=== PATIENT | female | born 1965 | race Caucasian/White ===

== ENCOUNTER 2016-10-19 22:37 | Emergency (ER) | payer OTHER ==
[2016-10-20 00:54] VITALS: BP 111/70; PULSE 70; TEMP 97.9; BMI 25.7
--- NOTE | 2016-10-20 01:31 | PDOC ---
History of Present Illness - General History Source: Patient Exam Limitations: No Limitations - History of Present Illness Initial Comments: 10/20/16 01:34 The patient is a 51-year-old female, with a significant past medical history of left nephrectomy, who presents to the ED with fever, chills, and right flank pain that began yesterday morning. Pt reports that she is nauseous but denies any vomiting. Allergies: Penicillin <Mignon Seymour - Last Filed: 10/20/16 01:34> - General History Source: Patient <YannMusa verdugo - Last Filed: 10/20/16 02:49> - General Chief Complaint: Pain, Acute Stated Complaint: RIGHT FLANK PAIN, CHILLS Time Seen by Provider: 10/20/16 01:28 Past History <Mignon Seymour - Last Filed: 10/20/16 01:34> - Psycho/Social/Smoking Cessation Hx Suicidal Ideation: No Smoking History: Current every day smoker Number of Cigarettes Smoked Daily: 10 Information on smoking cessation initiated: No Hx Alcohol Use: No Drug/Substance Use Hx: No <Musa Ballesteros - Last Filed: 10/20/16 02:49> - Past Medical History Allergies/Adverse Reactions: Allergies Allergy/AdvReac Type Severity Reaction Status Date / Time Penicillins Allergy Verified 10/20/16 01:46 Home Medications: Ambulatory Orders Ibuprofen 800 mg PO TID #30 tablet 10/20/16 Levofloxacin [Levaquin -] 500 mg PO DAILY #5 tablet 10/20/16 Oxycodone HCl/Acetaminophen [Percocet 5-325 mg Tablet] 1 - 2 tab PO Q6H #20 tablet MDD 4 10/20/16 Review of Systems - Review of Systems Able to Perform ROS?: Yes Comments:: 10/20/16 01:34 CONSTITUTIONAL: Present: fever, chills Absent: diaphoresis, generalized weakness, malaise, loss of appetite HEENT: Absent: rhinorrhea, nasal congestion, throat pain, throat swelling, difficulty swallowing, mouth swelling, ear pain, eye pain, visual Changes CARDIOVASCULAR: Absent: chest pain, syncope, palpitations, irregular heart rate, lightheadedness , peripheral edema RESPIRATORY: Absent: cough, shortness of breath, dyspnea with exertion, orthopnea, wheezing, stridor, hemoptysis GASTROINTESTINAL: Present: nausea Absent: abdominal distension, vomiting, diarrhea, constipation, melena, hematochezia GENITOURINARY: Present: right flank pain Absent: dysuria, frequency, urgency, hesitancy, hematuria, genital pain MUSCULOSKELETAL: Absent: myalgia, arthralgia, joint swelling SKIN: Absent: rash, itching, pallor HEMATOLOGIC/IMMUNOLOGIC: Absent: easy bleeding, easy bruising, lymphadenopathy, frequent infections ENDOCRINE: Absent: unexplained weight gain, unexplained weight loss, heat intolerance, cold intolerance NEUROLOGIC: Absent: headache, focal weakness or paresthesias, dizziness, unsteady gait, seizure, mental status changes, bladder or bowel incontinence PSYCHIATRIC: Absent: anxiety, depression, suicidal or homicidal ideation, hallucinations. <Mignon Seymour - Last Filed: 10/20/16 01:34> *Physical Exam - Vital Signs Last Vital Signs Temp Pulse Resp BP Pulse Ox 97.9 F 70 14 111/70 98 10/20/16 00:52 10/20/16 00:52 10/20/16 00:52 10/20/16 00:52 10/20/16 00:52 - Physical Exam Comments: 10/20/16 01:37 GENERAL: Well developed, well nourished. Awake and alert. +Mild distress. HEENT: Normocephalic, atraumatic. PERRLA, EOMI. No conjunctival pallor. Sclera are non- icteric. Moist mucous membranes. Oropharynx is clear. NECK: Supple. Full ROM. No JVD. Carotid pulses 2+ and symmetric, without bruits. No thyromegaly. No lymphadenopathy. CARDIOVASCULAR: Regular rate and rhythm. No murmurs, rubs, or gallops. Distal pulses are 2+ and symmetric. PULMONARY: No evidence of respiratory distress. Lungs clear to auscultation bilaterally. No wheezing, rales or rhonchi. ABDOMINAL: Soft. Non-tender. Non-distended. No rebound or guarding. No organomegaly. Normoactive bowel sounds. MUSCULOSKELETAL Normal range of motion at all joints. No bony deformities. +Right CVA tenderness. EXTREMITIES: No cyanosis. No clubbing. No edema. No calf tenderness. SKIN: Warm and dry. Normal capillary refill. No rashes. No jaundice. NEUROLOGICAL: Alert, awake, appropriate. PSYCHIATRIC: Cooperative. Good eye contact. Appropriate mood and affect. <Mignon Seymour - Last Filed: 10/20/16 01:34> - Vital Signs Last Vital Signs Temp Pulse Resp BP Pulse Ox 97.9 F 70 14 111/70 98 10/20/16 00:52 10/20/16 00:52 10/20/16 00:52 10/20/16 00:52 10/20/16 00:52 <Musa Ballesteros - Last Filed: 10/20/16 02:49> ED Treatment Course - LABORATORY CBC & Chemistry Diagram: 10/20/16 01:38 10/20/16 01:38 <Musa Ballesteros - Last Filed: 10/20/16 02:49> Medical Decision Making - Medical Decision Making 10/20/16 02:49 Dr. Ballesteros: The scribe's documentation has been prepared under my direction and personally reviewed by me in its entirery. I confirm that the note above accurately reflects all work, treatment, procedures, and medical decision making performed by me. <Musa Ballesteros - Last Filed: 10/20/16 02:49> *DC/Admit/Observation/Transfer - Attestations Scribe Attestion: 10/20/16 01:38 Documentation prepared by Mignon Seymour, acting as medical record transcriber for Musa Ballesteros MD. <Mignon Seymour - Last Filed: 10/20/16 01:34> - Discharge Dispostion Admit: No <Musa Ballesteros - Last Filed: 10/20/16 02:49> Diagnosis at time of Disposition: UTI (urinary tract infection) Qualifiers: Urinary tract infection type: site unspecified Hematuria presence: without hematuria Qualified Code(s): N39.0 - Urinary tract infection, site not specified - Discharge Dispostion Disposition: HOME Condition at time of disposition: Stable - Prescriptions Prescriptions: Ibuprofen 800 mg PO TID #30 tablet Levofloxacin [Levaquin -] 500 mg PO DAILY #5 tablet Oxycodone HCl/Acetaminophen [Percocet 5-325 mg Tablet] 1 - 2 tab PO Q6H #20 tablet MDD 4 - Referrals Referrals: Adán Juarez MD [Staff Physician] - Mitchell Porter MD [Staff Physician] - - Patient Instructions Printed Discharge Instructions: DI for Urinary Tract Infection (UTI) - Post Discharge Activity Work/School Note: Back to Work
[2016-10-20] MEDS ORDERED: SODIUM CHLORIDE 1,000 ML IV STA (01:32)
[2016-10-20] MEDS ORDERED: LEVOFLOXACIN 500 MG IVPB 100 ML IVPB ONE ×2 (01:33)
[2016-10-20] MEDS ORDERED: KETOROLAC TROMETHAMINE 30 MG/1 ML VIAL ONE (01:33)
[2016-10-20] MEDS ORDERED: KETOROLAC TROMETHAMINE 30 MG/1 ML VIAL IVPUSH ONE (01:33)
[2016-10-20 01:47] LABS: BASOPHIL 0.3 % (0-2.0); EOSINOPHIL 1.9 % (0-4.5); MCH 29.2 pg (25.7-33.7); MCHC 33.3 g/dl (32.0-36.0); MEAN CELL VOLUME 87.6 fl (80-96); MEAN PLT VOLUME 9.3 fl (7.5-11.1); NEUTROPHILS 63.5 % (42.8-82.8); PLATELET COUNT 178 K/MM3 (134-434); RDW 13.4 % (11.6-15.6); WHITE BLOOD COUNT 7.3 K/mm3 (4.0-10.0)
[2016-10-20 01:52] LABS: URINE APPEARANCE SLCLOUDY; URINE BILIRUBIN NEGATIVE (NEGATIVE); URINE BLOOD 3+ (NEGATIVE); URINE COLOR LTYELLOW; URINE GLUCOSE (UA) NEGATIVE (NEGATIVE); URINE KETONE NEGATIVE (NEGATIVE); URINE NITRITE NEGATIVE (NEGATIVE); URINE PROTEIN NEGATIVE (NEGATIVE); URINE UROBILINOGEN NEGATIVE mg/dL (0.2-1.0)
[2016-10-20 01:53] LABS: URINE LEUK ESTERASE 1+ (NEGATIVE)
[2016-10-20 01:59] LABS: URINE BACTERIA MODERATE /hpf (NONE SEEN); URINE RBC 28 /hpf (0-3); URINE WBC 130 /hpf (3-5)
[2016-10-20 02:00] LABS: URINE MUCUS RARE
[2016-10-20] MEDS ORDERED: OXYCODONE/APAP 5/325MG COMBO TABLET PO ONE (02:19)
[2016-10-20] MEDS ORDERED: OXYCODONE/APAP 5/325MG COMBO TABLET ONE (02:21)
[2016-10-20 02:26] LABS: ANION GAP 8 (8-16); CALCIUM 8.8 mg/dL (8.5-10.1); CO2 27 mmol/L (21-32); CREATININE 0.7 mg/dL (0.55-1.02); GLUCOSE,RANDOM 103 mg/dL (74-106)
== END 2016-10-20 03:08 | disposition home or self-care (01) ==
LOC: JER 22:37
PROC: 3E03329 Introduction of Other Anti-infective into Peripheral Vein, Percutaneous Approach (ICD-10-PCS; principal; 2016-10-19)
PROC: 3E0333Z Introduction of Anti-inflammatory into Peripheral Vein, Percutaneous Approach (ICD-10-PCS; 2016-10-19)
DX: N39.0 Urinary tract infection, site not specified (principal)
CPT/HCPCS: 36415; 80048; 81003; 81015; 84703; 85025; 87086; 87186; 99281-25